=== PATIENT | female | born 1985 | race Asian ===

== ENCOUNTER 2019-01-25 14:44 | Inpatient (IN) | payer BC ==
[~2019-01-25] VITALS: Ht 152.4 cm; Wt 57.3 kg
[2019-01-25 14:52] VITALS: Ht 152.4 cm; Wt 57.3 kg
[2019-01-25 14:53] VITALS: BP 108/76; PULSE 76; RESP 18
[2019-01-25] MEDS ORDERED: PREN1TAB13 PO (14:56)
--- NOTE | 2019-01-25 15:05 | TRIAGE ---
OB Triage Datetime Report Generated by CPN: 01/25/2019 15:04 Datetime: 01/25/2019 15:01 Time of Arrival: 01/25/2019 14:37 EGA: 37.4 Arrived By: Ambulatory Arrived From: Home Chief Complaint: UCS SINCE LAST NIGHT 10PM Movement: Present Contractions: Regular Rupture of Membranes: Denies Vaginal Bleeding: None Vaginal Discharge: Denies Recent Sexual Intercouse: Denies Abdominal Trauma: Not Applicable Patient Complaints: Contractions Provider Notified: CIRILO Initial Plan: EFM,CALL DR CIRILO Datetime: 01/25/2019 14:57 Maternal Assessment Level of Consciousness: Keenly Alert, Responsive DTR's/Clonus: DTRs 2+; No Clonus Headache: Denies Blurred Vision: No Respiratory Effort: Unlabored; Regular Rhythm; Equal Expansion Breath Sounds, Left: Clear and Equal Breath Sounds, Right: Clear and Equal Nausea/Vomiting: Denies RUQ Epigastric Pain: Denies Facial Edema: None Temperature Route: Axillary Fall Risk Assessment History of Falling: (0) No Secondary Diagnosis: (0) No Ambulatory Aid: (0) Bedrest/Nurse Assist IV Therapy: (0) No Gait: (0) Normal/Bedrest/Immobile Mental Status: (0) Oriented to Own Ability Fall Score: 0 Fall Risk Score Definition: No Risk: No action required
[2019-01-25] MEDS: LACTATED RINGER'S 1,000 ML IV SCH (15:17)
[2019-01-25] MEDS ORDERED: MISOPROSTOL 200 MCG TAB PR PRN ×2 (15:30→19:30)
[2019-01-25] MEDS ORDERED: BUTORPHANOL 2 MG INJ IV PRN (15:30)
[2019-01-25] MEDS ORDERED: CARBOPROST 250 MCG INJ IM PRN ×2 (15:30→19:30)
[2019-01-25] MEDS ORDERED: LIDOCAINE 1% (MPF) 30 ML INJ INJ PRN (15:30)
[2019-01-25] MEDS ORDERED: OXYTOCIN 30 UNITS/LR 500 ML IV SCH ×5 (15:30→19:20)
[2019-01-25] MEDS ORDERED: METHYLERGONOVINE 0.2 MG INJ IM PRN ×2 (15:30→19:30)
[2019-01-25] MEDS ORDERED: OXYTOCIN 30 UNITS/LR 500 ML IV PRN ×2 (15:30→19:30)
[2019-01-25] MEDS ORDERED: FENTAnyl 2MCG/ML-ROPIV 0.2% 100 ML ONE (16:50)
--- NOTE | 2019-01-25 17:04 | PREAC ---
Date/Time of Note Date/Time of Note DATE: 01/25/19 TIME: 17:02 Anesthesia Eval and Record Evaluation Time Pre-Procedure Interview DATE: 01/25/19 TIME: 16:35 Age 33 Sex female NPO: 8 hrs Preoperative diagnosis iup @ 37 wks., labor Planned procedure darion Past Medical History Past Medical History: Includes : Gestational age: (37 wks.) Surgery & Anesthesia Issues No known issue Meds Anticoagulation: No Beta Kvng within 24 hr: No Reason Beta Kvng not given: Pt. not on B-Kvng Reported Medications Pnv95/Ferrous Fumarate/FA ( Vitamins Tablet) 1 Each Tablet, 1 EACH PO, TAB 01/25/19 Current Medications Lactated Ringer's 1,000 ml @ 125 mls/hr Q8H IV Last administered on 01/25/19at 15:17; Admin Dose 125 MLS/HR; Start 01/25/19 at 15:04 Butorphanol Tartrate (Stadol) 1 mg Q2H PRN IV .PAIN SCALE 1-5; Start 01/25/19 at 15:30 Lidocaine (Xylocaine 1% (Mpf)) 30 ml ONCE PRN INJ .EPISIOTOMY; Start 01/25/19 at 15:30 Oxytocin/Lactated Ringer's 500 ml @ 500 mls/hr ONCE POST IV ; Start at 15:30 Oxytocin/Lactated Ringer's 500 ml @ 125 mls/hr POST IV ; Start 01/25/19 at 15:30 Oxytocin/Lactated Ringer's 500 ml @ 0 mls/hr ONCE PRN IV .VAGINAL BLEEDING; Start 01/25/19 at 15:30 Methylergonovine Maleate (Methergine) 0.2 mg ONCE PRN IM .VAGINAL BLEEDING; Start 01/25/19 at 15:30 Carboprost Tromethamine (Hemabate) 250 mcg ONCE PRN IM .VAGINAL BLEEDING; Start 01/25/19 at 15:30 Misoprostol (Cytotec) 1,000 mcg ONCE PRN [place] .VAGINAL BLEEDING; Start 01/25/19 at 15:30 Oxytocin/Lactated Ringer's 500 ml @ 0 mls/hr FOR AUGMENTATION IV ; Start 01/25/19 at 17:00 Meds reviewed: Yes Allergies Coded Allergies: No Known Allergy (Unverified , 01/25/19) Allergies Reviewed: Yes Labs/Studies Labs Reviewed: Reviewed by anesthesiologist Result Diagram: 01/25/19 1500 Laboratory Tests 01/25/19 15:00 Blood Bank Test 01/25/19 15:00 Antibody Screen NEGATIVE Blood Type B POSITIVE Rh Immune Globulin Candidate NO test: Positive Studies: ECG (n/a), CXR (n/a) Pre-procedure Exam Last vitals Vital Signs Date Temp Pulse Resp B/P (MAP) Pulse Ox O2 O2 Flow FiO2 Time Delivery Rate 01/25/19 97.5 76 18 108/76 Room Air 14:53 (87) Airway: Adequate mouth opening, Adequate thyromental dist Mallampati: Mallampati II Teeth: Normal Lung: Normal Heart: Normal ASA Physical Status ASA physical status: 2 Emergency: E Planned Anesthetic Neuraxial: Epidural Planned Pain Management Epidural, Local by surgeon Pre-operative Attestations Prior to commencing anesthesia and surgery, the patient was re-evaluated, there was verification of: *The patient's identity *The results of appropriate recent lab work and preoperative vital signs *The above evaluation not changing prior to induction *Anesthetic plan, risk benefits, alternative and complications discussed with p atient/family; questions answered; patient/family understands, accepts and wishes to proceed. Pie Maker used KIERAN GARLAND MD Jan 25, 2019 17:04
[2019-01-25] MEDS ORDERED: ONDANSETRON 4 MG INJ IV PRN ×2 (17:30→19:30)
[2019-01-25] MEDS ORDERED: FENTAnyl 2MCG/ML-ROPIV 0.2% 100 ML BAG EPI SCH (17:30)
[2019-01-25] MEDS ORDERED: NALOXONE (0.4 MG/ML) INJ IV PRN (17:30)
[2019-01-25] MEDS ORDERED: NALBUPHINE HCL (10 MG/1 ML) INJ IV PRN (17:30)
[2019-01-25] MEDS ORDERED: METHYLERGONOVINE 0.2 MG TAB PO PRN (19:30)
[2019-01-25] MEDS ORDERED: WITCH HAZEL/GLYCERIN PAD PR PRN (19:30)
[2019-01-25] MEDS ORDERED: LANOLIN HPA 1 PKT TOP PRN (19:30)
[2019-01-25] MEDS ORDERED: NA PHOSPHATE/BIPHOS 133 ML ENEMA PR PRN (19:30)
[2019-01-25] MEDS ORDERED: ZOLPIDEM 5 MG TAB PO PRN (19:30)
[2019-01-25] MEDS ORDERED: MAGNESIUM HYDROXIDE 30ML CUP PO PRN (19:30)
[2019-01-25] MEDS ORDERED: DIPHENHYDRAMINE 25 MG CAP PO PRN (19:30)
[2019-01-25] MEDS ORDERED: BENZOCAINE 20% 56 ML SPRAY TOP PRN (19:30)
[2019-01-25] MEDS ORDERED: HYDROCODONE/APAP (5/325) TAB PO PRN ×2 (19:30)
[2019-01-25 20:30] VITALS: BP 125/81; PULSE 82; RESP 18
[2019-01-25] MEDS: SENNA/DOCUSATE NA (8.6MG/50MG) TAB PO SCH (21:00)
[2019-01-25] MEDS: IBUPROFEN 800 MG TAB PO PRN (23:58)
[2019-01-26 04:07] VITALS: BP 103/71; PULSE 72; RESP 18
[2019-01-26] MEDS: IBUPROFEN 800 MG TAB PO PRN ×2 (05:32→12:57)
--- NOTE | 2019-01-26 05:35 | PREOPHP ---
DATE OF ADMISSION: 01/25/2019 HISTORY OF PRESENT ILLNESS: This is a 33-year-old lady, 3, para 2, EDC 02/11/2019, at 37 and 4/7 weeks, admitted to labor and delivery area in active labor. She had care in my [place] office and the care was uneventful but she started to have contractions about a few hours p rior to admission and got worse up to the time of admission. PAST PERSONAL HISTORY: No history of diabetes, TB, asthma. ALLERGIES: No allergies. SOCIAL HISTORY: Patient does not smoke. She does not drink. MEDICATIONS: She does not take any drugs except her iron and vitamins. GYNECOLOGIC HISTORY: She had menarche at the age of 10, every 28 days interval, 3 to 4 days duration , and moderate in amount. FAMILY HISTORY: Noncontributory. She is 3, para 2. Her first delivery was in 2014, second in 2016, all normal deliveries. REVIEW OF SYSTEMS: CARDIOVASCULAR: No chest pains. RESPIRATORY: No cough. GASTROINTESTINAL: No diarrhea, no vomiting. GENITOURINARY: No dysuria. PHYSICAL EXAMINATION: GENERAL: Reveals a conscious, coherent lady and in no acute distress. VITAL SIGNS: Her blood pressure 120/80, pulse rate 80 per minute, respirations 16 per minute. BREASTS, HEART AND LUNGS: Within normal limits. ABDOMEN: Term size uterus, estimated weight about 7-1/2 pounds. PELVIC: On admission revealed the cervix to be 4 to 5 cm dilated, 100% effaced, station 0. Cephalic presentation with the bag of water intact. This is according to the nurse. EXTREMITIES: No pedal edema. ADMITTING DIAGNOSES: A 37 and 4/7 weeks intrauterine in active labor. The plans were expl ained to the patient as to go for vaginal delivery. The risks, benefits, and alternatives to vaginal delivery and was explained to the patient and risks of explained. She wanted to go for vaginal delivery. The patient was observed for progress of labor. She was given Pitocin aug mentation at 1616 hours 01/25/2019. She was 6 cm dilated, 100% effaced. Artificial rupture of the b ag of water was done. scalp electrodes and IPC were inserted. She was observed for progress o f labor. She received labor epidural and she progressed well. Dictated By: ERIKA PUGA/JOCELYNN STEELE: 01/25/2019 21:42:02 Conf#: [id number] [facility]#: [id number]
--- NOTE | 2019-01-26 05:46 | OPR ---
DATE OF OPERATION: 01/25/2019 This is a 33-year-old lady, 3, para 2, EDC 02/11/2019 at 37 and 4/7 weeks', admitted in activ e labor. HISTORY OF PRESENT ILLNESS: See dictated history and physical. PHYSICAL EXAMINATION: See dictated history and physical. ADMITTING DIAGNOSIS: 37 and 4/7 weeks' intrauterine in active labor. PROGRESS OF LABOR: See dictated history and physical. She received labor epidural. She received Pi tocin augmentation and she progressed well. She had a normal spontaneous vaginal delivery 01/25/2019 at 1815 hours, delivering a healthy baby boy, 9 and 9, weighing 7 pounds 8 ounces, 3400 grams over intact perineum. The placenta was delivered spontaneously and complete. Manual exploration of the uterus revealed no membranes left behind. Cervix, vagina, and vulva were free of hematoma. The position was direct occiput anterior. There were 3 vessels in the cord. The placenta was norm al with a small shiny side and a pinkish maternal side. The patient tolerated the delivery wel l. Estimated blood loss about 400 mL. The uterus was noted to be hypotonic. Soon after the babies were born Methergine was given, with massaging of the uterus. Manual exploration of the uterus revea led no membranes left behind. Cervix, vagina, and vulva were free of hematoma. Dictated By: ERIKA PUGA/JOCELYNN Conf#: [id number] DID#: [id number]
--- NOTE | 2019-01-26 06:36 | PAC ---
Date/Time of Note Date/Time of Note DATE: 01/26/19 TIME: 06:36 Post-Anesthesia Notes Post-Anesthesia Note Last documented vital signs Vital Signs Date Temp Pulse Resp B/P (MAP) Pulse Ox O2 O2 Flow FiO2 Time Delivery Rate 01/26/19 97.7 72 18 103/71 Room Air 04:07 (82) Activity: WNL Respiratory function: WNL Cardiovascular function: WNL Mental status: Baseline Pain reasonably controlled: Yes Hydration appropriate: Yes Nausea/Vomiting absent: Yes KIERAN GARLAND MD Jan 26, 2019 06:36
[2019-01-26] MEDS: LACTATED RINGER'S 1,000 ML IV SCH ×2 (07:30→14:05)
[2019-01-26] MEDS: LACTATED RINGER'S 1,000 ML IV* SCH ×2 (07:30→14:05)
[2019-01-26 08:30] VITALS: BP 121/72; PULSE 84; RESP 18
[2019-01-26] MEDS: SENNA/DOCUSATE NA (8.6MG/50MG) TAB PO SCH ×2 (08:43→21:00)
[2019-01-26 12:45] VITALS: BP 101/66; PULSE 81; RESP 18
[2019-01-26 16:00] VITALS: BP 112/70; PULSE 76; RESP 17
--- NOTE | 2019-01-26 18:00 | PN ---
Date/Time of Note Date/Time of Note DATE: 01/26/19 TIME: 17:59 Assessment/Plan VTE Prophylaxis Risk score (from Ns)>0 risk: 1 SCD applied (from [facility] [place]): No SCD contraindicated: low risk/ambulating Pharmacological prophylaxis: NA/contraindicated Pharm contraindication: low risk/ambulating Lines/Catheters IV C[facility]ter Type (from [facility]): Peripheral IV Assessment/Plan Assessment/Plan POST DAY 1 HOME TOMORROW RETURN TO CLINIC IN 2 WEEKS CONTINUE WITH VITAMINS OD AND FERROUS SULFATE PO TID DIET ADVISED COUNSELED INSTRUCTED CALL OFFICE IF THERE IS ANY PROBLEMS OR CONCERN Result Diagram: 01/26/19 0629 Results 24hrs Laboratory Tests Test 01/26/19 06:29 White Blood Count 15.7 #H Red Blood Count 3.82 L Hemoglobin 11.1 L Hematocrit 33.3 L Mean Corpuscular Volume 87.2 Mean Corpuscular Hemoglobin 29.1 Mean Corpuscular Hemoglobin Concent 33.3 Red Cell Distribution Width 13.2 Platelet Count 160 Mean Platelet Volume 11.1 H Immature Granulocytes % 0.700 H Neutrophils % 76.8 Lymphocytes % 14.0 L Monocytes % 7.5 Eosinophils % 0.7 Basophils % 0.3 Nucleated Red Blood Cells % 0.0 Immature Granulocytes # 0.110 H Neutrophils # 12.0 H Lymphocytes # 2.2 Monocytes # 1.2 H Eosinophils # 0.1 Basophils # 0.0 Nucleated Red Blood Cells # 0.0 Subjective 24 Hr Interval Summary Free Text/Dictation FEELS GOOD, GOOD URINE OUTPUT, GOOD BOWEL MOVEMENT Exam/Review of Systems Exam Vitals Vital Signs Date Temp Pulse Resp B/P (MAP) Pulse Ox O2 O2 Flow FiO2 Time Delivery Rate 01/26/19 97.7 76 17 112/70 Room Air 16:00 (84) Intake and Output 01/25/19 01/25/19 01/26/19 1515:00 23:00 07:00 IntakeIntake Total 500 ml 500 ml OutputOutput Total 977 ml 400 ml BalanceBalance -477 ml 100 ml Exam VITAL SIGNS STABLE: YES AFEBRILE: YES BREAST NOT ENGORGED, NON-TENDER, NO APPRECIABLE MASS: YES LUNGS CLEAR, NO RALES, WHEEZES, RHONCHI: YES SINUS RHYTHM WITHOUT MURMUR: YES ABDOMEN: NON-TENDER FUNDUS: BELOW UMBILICUS BOWEL SOUNDS: PRESENT UTERUS: FIRM INTACT PERINEUM: YES LOCHIA: LIGHT DEEP TENDON REFLEXES: 0 EXTREMITIES: NO CALF TENDERNESS EDEMA SCALE: NONE Results Results 24hrs Laboratory Tests Test 01/26/19 06:29 White Blood Count 15.7 #H Red Blood Count 3.82 L Hemoglobin 11.1 L Hematocrit 33.3 L Mean Corpuscular Volume 87.2 Mean Corpuscular Hemoglobin 29.1 Mean Corpuscular Hemoglobin Concent 33.3 Red Cell Distribution Width 13.2 Platelet Count 160 Mean Platelet Volume 11.1 H Immature Granulocytes % 0.700 H Neutrophils % 76.8 Lymphocytes % 14.0 L Monocytes % 7.5 Eosinophils % 0.7 Basophils % 0.3 Nucleated Red Blood Cells % 0.0 Immature Granulocytes # 0.110 H Neutrophils # 12.0 H Lymphocytes # 2.2 Monocytes # 1.2 H Eosinophils # 0.1 Basophils # 0.0 Nucleated Red Blood Cells # 0.0 Medications Medication Current Medications Lactated Ringer's 1,000 ml @ 125 mls/hr Q8H IV Last administered on 01/25/19at 15:17; Admin Dose 125 MLS/HR; Start 01/25/19 at 15:04 Butorphanol Tartrate (Stadol) 1 mg Q2H PRN IV .PAIN SCALE 1-5; Start 01/25/19 at 15:30 Lidocaine (Xylocaine 1% (Mpf)) 30 ml ONCE PRN INJ .EPISIOTOMY; Start 01/25/19 at 15:30 Oxytocin/Lactated Ringer's 500 ml @ 500 mls/hr ONCE POST IV Last administered on 01/25/19at 18:28; Admin Dose 500 MLS/HR; Start 01/25/19 at 15:30 Oxytocin/Lactated Ringer's 500 ml @ 125 mls/hr POST IV Last administered on 01/25/19at 18:29; Admin Dose 125 MLS/HR; Start 01/25/19 at 15:30 Oxytocin/Lactated Ringer's 500 ml @ 0 mls/hr ONCE PRN IV .VAGINAL BLEEDING; Start 01/25/19 at 15:30 Methylergonovine Maleate (Methergine) 0.2 mg ONCE PRN IM .VAGINAL BLEEDING Last administered on 01/25/19at 18:20; Admin Dose 0.2 MG; Start 01/25/19 at 15:30 Carboprost Tromethamine (Hemabate) 250 mcg ONCE PRN IM .VAGINAL BLEEDING; Start 01/25/19 at 15:30 Misoprostol (Cytotec) 1,000 mcg ONCE PRN [place] .VAGINAL BLEEDING; Start 01/25/19 at 15:30 Oxytocin/Lactated Ringer's 500 ml @ 0 mls/hr FOR AUGMENTATION IV ; Start 01/25/19 at 17:00 Fentanyl/ Ropivacaine 100 ml EPIDURAL INFUSION EPI ; Start 01/25/19 at 17:30 Lactated Ringer's 1,000 ml @ 125 mls/hr Q8H IV* ; Start 01/25/19 at 19:20 Methylergonovine Maleate (Methergine) 0.2 mg Q6H PRN PO .VAGINAL BLEED; Start 01/25/19 at 19:30 Ondansetron HCl (Zofran Inj) 4 mg Q6H PRN IV NAUSEA/VOMITING; Start 01/25/19 at 19:30 Diphenhydramine HCl (Benadryl) 25 mg Q6H PRN PO .PRUTITUS; Start 01/25/19 at 19:30 Zolpidem Tartrate (Ambien) 5 mg QHS PRN PO .INSOMNIA; Start 01/25/19 at 19:30 Senna/Docusate Sodium (Senokot-S) 1 tab BID PO Last administered on 01/26/19at 08:43; Admin Dose 1 TAB; Start 01/25/19 at 21:00 Magnesium Hydroxide (Milk Of Mag) 30 ml Q12H PRN PO .CONSTIPATION; Start 01/25/19 at 19:30 Sodium Biphosphate/ Sodium Phosphate (Fleet Enema) 133 ml DAILY PRN MN .CONSTIPATION; Start 01/25/19 at 19:30 Witch [place]/ Glycerin (Tucks Pads) 1 pad BEDSIDE MEDICATION PRN MN .HEMORRHOID/EPISIOTOMY PAIN Last administered on 01/25/19at 22:41; Admin Dose 40 PAD; Start 01/25/19 at 19:30 Benzocaine (Dermoplast [place]) 1 spray BEDSIDE MEDICATION PRN TOP .HEMMORHOID/EPISIOTOMY PAIN Last administered on 01/25/19at 22:41; Admin Dose 56 SPRAY; Start 01/25/19 at 19:30 Lanolin (Lanolin Hpa) 1 applic BEDSIDE MEDICATION PRN TOP .NIPPLES Last administered on 01/25/19at 22:41; Admin Dose 1 APPLIC; Start 01/25/19 at 19:30 Measles/Mumps/ Rubella Vaccine Live (Mmr Ii Vaccine) 0.5 ml ONCE ONCE SC* ; Start 01/27/19 at 09:00; Stop 01/27/19 at 09:01 Diphtheria/ Tetanus/Acell Pertussis (Adacel) 0.5 ml ONCE ONCE IM* ; Start 01/27/19 at 09:00; Stop 01/27/19 at 09:01 Varicella Virus Vaccine Live (Varivax Vaccine With Diluent) 1,350 unit ONCE ONCE SC* ; Start 01/27/19 at 09:00; Stop 01/27/19 at 09:01 Oxytocin/Lactated Ringer's 500 ml @ 0 mls/hr ONCE PRN IV .VAGINAL BLEEDING; Start 01/25/19 at 19:30 Methylergonovine Maleate (Methergine) 0.2 mg ONCE PRN IM .VAGINAL BLEEDING; Start 01/25/19 at 19:30 Carboprost Tromethamine (Hemabate) 250 mcg ONCE PRN IM .VAGINAL BLEEDING; Start 01/25/19 at 19:30 Misoprostol (Cytotec) 1,000 mcg ONCE PRN [place] .VAGINAL BLEEDING; Start 01/25/19 at 19:30 Ibuprofen (Motrin) 800 mg Q6H PRN PO MILD PAIN LEVEL 1-3 Last administered on 01/26/19at 12:57; Admin Dose 800 MG; Start 01/25/19 at 19:30 Acetaminophen/ Hydrocodone Bitart ([place] (5/325)) 1 tab Q4H PRN PO MODERATE PAIN LEVEL 4-6; Start 01/25/19 at 19:30 Acetaminophen/ Hydrocodone Bitart ([place] (5/325)) 2 tab Q4H PRN PO MODERATE PAIN LEVEL 4-6; Start 01/25/19 at 19:30 ERIKA KERR MD Jan 26, 2019 18:00
[2019-01-26 20:00] VITALS: BP 115/68; PULSE 81; RESP 19
[2019-01-27 03:20] VITALS: BP 107/77; PULSE 70; RESP 17
[2019-01-27 08:15] VITALS: BP 114/68; PULSE 73; RESP 18
[2019-01-27] MEDS ORDERED: MEASLES,MUMPS,RUBELLA VACCINE INJ SC* ONE (09:00)
[2019-01-27] MEDS ORDERED: VARICELLA VACCINE LIVE/PF 1,350 UNIT/0.5 ML ML SC* ONE (09:00)
[2019-01-27] MEDS ORDERED: DIPHTH/TET/ACEL PERTUSS (ADULT) 0.5 ML VIAL IM* ONE (09:00)
[2019-01-27] MEDS: SENNA/DOCUSATE NA (8.6MG/50MG) TAB PO SCH (09:00)
[2019-01-27] MEDS: IBUPROFEN 800 MG TAB PO PRN (11:28)
--- NOTE | 2019-01-28 15:07 | DELSUM ---
Delivery Summary A-C Datetime Report Generated by CPN: 01/28/2019 15:07 DELIVERY PERSONNEL Production Honing Machine Operator: Duvo, Liat MATERNAL INFORMATION Delivery Anesthesia: Epidural Medications in Delivery: PITOCIN 30 UNITS Delivery QBL (ml): 402 Placenta Cultured: No Maternal Complications: None LABOR SUMMARY EDC: 02/11/2019 00:00 Attempted: No Labor Anesthesia: Epidural LABOR INFORMATION Reason for Induction: Not Applicable Onset of Labor: 01/25/2019 11:00 Complete Dilatation: 01/25/2019 17:45 Oxytocin: N/A Group B Beta Strep: Negative Antibiotics # of Doses: 0 Steroids Given: None Reason Steroids Not Administered: Not Applicable MEMBRANES Membranes Rupture Method: Artificial Rupture of Membranes: 01/25/2019 16:16 Length of Rupture (hr): 1.98 Amniotic Fluid Color: Clear Amniotic Fluid Amount: Moderate Amniotic Fluid Odor: None STAGES OF LABOR Stage 1 hr: 6 Stage 1 min: 45 Stage 2 hr: 0 Stage 2 min: 30 Stage 3 hr: 0 Stage 3 min: 5 Total Time in Labor hr: 7 Total Time in Labor min: 20 VAGINAL DELIVERY Episiotomy: None Laceration Extension: N/A Laceration Type: None Laceration Repair: Not Applicable Initial Vag Sponge Count: 10 Final Vag Sponge Count: 10 Initial Vag Sharps Count: 1 Final Vag Sharps Count: 1 Sponge Count Correct: Yes; Vaginal Sweep Performed Sharps Count Correct: Yes BABY A INFORMATION Infant Delivery Date/Time: 01/25/2019 18:15 Method of Delivery: Vaginal Born in Route : No : N/A Forceps: N/A (Annotations: Data stored by [facility] on behalf of user) Vacuum Extraction: N/A Shoulder Dystocia : No SHOULDER DYSTOCIA BABY A Infant Delivery Date/Time: 01/25/2019 18:15 PRESENTATION/POSITION BABY A Presentation: Cephalic Cephalic Presentation: Vertex Vertex Position: Left Occipital Anterior Breech Presentation: N/A PLACENTA INFORMATION BABY A Placenta Delivery Time : 01/25/2019 18:20 Placenta Method of Delivery: Spontaneous Placenta Status: Delivered SCORES BABY A Heart Rate 1 min: >100 bpm Resp Effort 1 min: Good Cry Reflex Irritability 1 min: Cough/Sneeze/Pulls Away Muscle Tone 1 min: Active Motion Color 1 min: Body [place], Extremit Blue Resuscitation Effort 1 min: Tactile Stimulation SCORE 1 MIN: 9 Heart Rate 5 min: >100 bpm Resp Effort 5 min: Good Cry Reflex Irritability 5 min: Cough/Sneeze/Pulls Away Muscle Tone 5 min: Active Motion Color 5 min: Body [place], Extremit Blue SCORE 5 MIN: 9 INFORMATION BABY A Gestational Age at Delivery: 37.4 Gestational Status: Early Term- 37- 38.6 Weeks Outcome : Liveborn Condition : Stable Sex: Male IDENTIFICATION/MEDS BABY A ID Band Number: [id number] ID Band Location: Right Leg; Left Arm Sensor Applied: Yes Sensor Number: [id number] Sensor Location : Cord Clamp Vitamin K Given : Not Given Erythromycin Given: Not Given WEIGHT/LENGTH BABY A Birthweight (gm): 3400 Infant Weight (lb): 7 Weight (oz): 8 Infant Length (in): 19.00 Infant Length (cm): 48.26 CORD INFORMATION BABY A No. Cord Vessels: 3 Nuchal Cord : Around Neck x1, Tight Cord Blood Taken: Yes (Annotations: Data stored by [facility] on behalf of user) Infant Suction: Mouth; Nose ASSESSMENT BABY A Infant Complications: None Physical Findings at Delivery: Bruising; Within Normal Limits Physical Findings- Other: facial bruise on left side of face Respirations: Appears Normal Beam Dyer/ALS Called : Yes Care By: Ayesha NAVARRO Transferred To: Remains with Mother
--- NOTE | 2019-02-03 03:51 | DS ---
DATE OF ADMISSION: 01/25/2019 DATE OF DISCHARGE: 01/27/2019 This is a 33-year-old lady, 3, para 2, EDC 02/11/2019 at 37 and 4/7 weeks, admitted in active labor. HISTORY OF PRESENT ILLNESS: See dictated history and physical. PHYSICAL EXAMINATION: See dictated history and physical. ADMITTING DIAGNOSES: A 37 and 4/7 weeks intrauterine in active labor. PROGRESS OF LABOR: See dictated history and physical. The patient progressed well and received labor epidural. She had a normal spontaneous vaginal delive ry on 01/25/2019 at 18:15 hours, healthy baby boy, Apgars 9 and 9, weighing 7 pounds and 8 ounces ove r intact perineum. She tolerated the delivery well. She did have good course. She had g ood bowel movement. She had less pain and uterine cramps on the second day. The hematocr it on discharge was 33.3, hemoglobin 11.1. She was discharged home on the second day. Ge neral diet and activity was restricted. She was counseled. She was instructed. She was told to sundar lincoln to take her iron and vitamins at home. FINAL DIAGNOSES: 1. A 37 and 4/7 weeks intrauterine . 2. Active labor. 3. Delivered. Dictated By: ERIKA PUGA/JOCELYNN Conf#: [id number] DID#: [id number]
== END 2019-01-27 14:30 | disposition home or self-care (01) | DRG 807 ==
LOC: OBT 14:44 → L-D 14:44 → OBT 15:00 → L-D 15:44 → PP1 20:39
PROVIDERS: ADMIT Obstetrics & Gynecology; ATTEND Obstetrics & Gynecology
PROC: 10E0XZZ Delivery of Products of Conception, External Approach (ICD-10-PCS; principal; 2019-01-25)
PROC: 10907ZC Drainage of Amniotic Fluid, Therapeutic from Products of Conception, Via Natural or Artificial Opening (ICD-10-PCS; 2019-01-25)
PROC: 4A1H7CZ Monitoring of Products of Conception, Cardiac Rate, Via Natural or Artificial Opening (ICD-10-PCS; 2019-01-25)
PROC: 10H073Z Insertion of Monitoring Electrode into Products of Conception, Via Natural or Artificial Opening (ICD-10-PCS; 2019-01-25)
DX: O75.89 Other specified complications of labor and delivery (principal); Z37.0 Single live birth; Z3A.37 37 weeks gestation of pregnancy
CPT/HCPCS: 62322; 85025; 85610; 85730; 86592; 86850; 86900; 86901; 90716; G0463; J2210; J2590; J3010; J7120